=== PATIENT | male | born 1960 | race Caucasian/White ===

== ENCOUNTER 2020-05-30 20:10 | Inpatient (IN) ==
[2020-05-30] MEDS ORDERED: Thiamine (B-1) 100 MG TABLET PO ONE (20:22)
[2020-05-30] MEDS ORDERED: Renal Vitamin 1 CAP CAPSULE PO ONE (20:23)
[2020-05-30 20:51] LABS: Eosinophils % 1.3 %; Immature Granulocytes % 0.3 % (0-4)
[2020-05-30 20:52] LABS: VBG HCO3 25 mEq/L (21-27); VBG PCO2 47 mmHg (41-51); VBG PH 7.33 pH Units (7.32-7.42); VBG PO2 43 mmHg (25-50)
[2020-05-30 20:52] LABS: Basophils # 0.1 K/mcL (0.0-0.2); Basophils % 2.2 %; Hematocrit 34.8 % (37.5-50.1); Hemoglobin 10.6 g/dL (12.9-16.9); Immature Platelets 6.1 % (1.1-6.1); Lymphocytes # 1.1 K/mcL (0.6-4.6); Lymphocytes % 33.1 %; Mean Corpuscular HGB Conc 30.5 g/dL (31.6-35.5); Mean Corpuscular Hemoglobin 24.5 pg (28.0-33.3); Mean Corpuscular Volume 80.4 fL (83.0-100.0); Mean Platelet Volume 9.3 fL (9.4-12.4); Monocytes # 0.2 K/mcL (0.0-1.3); Monocytes % 6.9 %; Neutrophils # 1.8 K/mcL (1.6-8.9); Red Blood Count 4.33 M/mcL (4.19-5.50); Red Cell Distribution Width 17.8 % (11.5-14.5); Segmented Neutrophils % 56.2 %; White Blood Count 3.2 K/mcL (4.3-11.1)
[2020-05-30 20:55] LABS: INR 1.2; Prothrombin Time 14.2 Seconds (9.4-12.1)
[2020-05-30 21:17] LABS: Alanine Aminotransferase 18 Units/L (7-52); Albumin 3.9 g/dL (3.5-5.7); Alkaline Phosphatase 108 Units/L (34-104); Aspartate Amino Transferase 61 Units/L (13-39); BUN/Creatinine Ratio 11 (6-26); Bilirubin,Direct 0.7 mg/dL (0.0-0.2); Bilirubin,Total 1.7 mg/dL (0.3-1.0); Blood Urea Nitrogen 6 mg/dL (8-23); Calcium 9.2 mg/dL (8.6-10.3); Carbon Dioxide 23 mEq/L (23-29); Chloride 96 mEq/L (98-107); Ethanol 203 mg/dL (Less than 10); Globulin 3.9 g/dL (2.4-3.5); Glucose 102 mg/dL (70-105); Osmolality,Calculated 268 (280-300); Platelet Count 33 K/mcL (140-400); Potassium 3.9 mEq/L (3.5-5.1); Sodium 130 mEq/L (136-145); Total Protein 7.8 g/dL (6.4-8.9); eGFR For African Americans > 60 (> 60); eGFR For Non-African Americans > 60 (> 60)
[2020-05-30] MEDS ORDERED: Furosemide 40 MG/4 ML VIAL IVP ONE (21:28)
[2020-05-30] MEDS: Nitroglycerin 0.4 MG TAB.SUBL SL PRN ×3 (21:29→21:39)
[2020-05-30] MEDS ORDERED: cefTRIAXone 1,000 MG in Water for inj. (sterile) 10 ML IVP ONE (22:18)
[2020-05-30] MEDS ORDERED: *HR* Promethazine 25 MG/ML VIAL IM PRN (23:00)
[2020-05-30] MEDS ORDERED: Naloxone 0.4 MG/ML INJ IVP PRN (23:00)
[2020-05-30] MEDS ORDERED: Acetaminophen 325 MG TABLET PO PRN (23:00)
[2020-05-30] MEDS ORDERED: Ondansetron 4 MG/2 ML VIAL IVP PRN (23:00)
[2020-05-30] MEDS: DilTIAZem 50 MG/50 ML IV.SOLN IVC SCH (23:01)
[2020-05-30] MEDS ORDERED: *HR* LORazepam 2 MG/ML VIAL IVP PRN ×2 (23:02)
[2020-05-30 23:47] LABS: RBC,Peritoneal Fluid 8000 RBC/mcL
[2020-05-31 00:02] LABS: Amylase,Peritoneal Fluid < 10 Units/L (No Ref Range); Glucose,Peritoneal Fluid 109 mg/dL (No Ref Range); LDH,Peritoneal Fluid 66 Units/L (No Ref Range); Total Protein,Peritoneal Fluid < 2.0 g/dL
[2020-05-31 00:14] LABS: Influenza A PCR Negative (Negative); Influenza B PCR Negative (Negative); Resp. Syncytial Virus PCR Negative (Negative)
[2020-05-31 00:15] LABS: SARS-CoV-2 by PCR (In House) Negative (Negative)
[2020-05-31 00:34] LABS: Appearance of Peritoneal Fl CLEAR (Clear)
[2020-05-31 01:12] LABS: Basophils,Peritoneal Fluid 0 %; Eosinophils,Peritoneal Fluid 0 %
[2020-05-31] MEDS ORDERED: *HR* Heparin 5,000 UNIT/ML VIAL IVP PRN ×2 (01:51)
[2020-05-31] MEDS ORDERED: *HR* Heparin 5,000 UNIT/ML VIAL IVP ONE (01:51)
[2020-05-31] MEDS ORDERED: Heparin 25,000UNIT/250ML 1/2NS 25,000 UNIT/250 ML IV.SOLN IVC SCH (02:00)
[2020-05-31] MEDS: DilTIAZem 50 MG/50 ML IV.SOLN IVC SCH ×4 (03:01→19:55)
[2020-05-31] MEDS ORDERED: Perflutren Lipid Microsphere 1.3 ML in 0.9 % Sodium Chloride 8.7 ML IVP PRN (03:19)
[2020-05-31 04:43] LABS: Heparin anti-factor XA UFH < 0.04 IU/mL (0.30-0.70)
[2020-05-31 04:44] LABS: INR 1.3; Prothrombin Time 14.6 Seconds (9.4-12.1)
[2020-05-31 04:49] LABS: Alanine Aminotransferase 16 Units/L (7-52); Albumin 3.4 g/dL (3.5-5.7); Alkaline Phosphatase 91 Units/L (34-104); Aspartate Amino Transferase 57 Units/L (13-39); BUN/Creatinine Ratio 10 (6-26); Bilirubin,Total 1.6 mg/dL (0.3-1.0); Blood Urea Nitrogen 5 mg/dL (8-23); Calcium 8.8 mg/dL (8.6-10.3); Carbon Dioxide 25 mEq/L (23-29); Chloride 100 mEq/L (98-107); Chol/HDL Ratio 2.7 (0-4.9); Cholesterol 125 mg/dL (< 200); Globulin 3.5 g/dL (2.4-3.5); Glucose 84 mg/dL (70-105); HDL Cholesterol 46 mg/dL (40-59); LDL Cholesterol,Calculated 67 mg/dL (< 100); Magnesium 1.4 mg/dL (1.6-2.6); Osmolality,Calculated 282 (280-300); Phosphorous 4.1 mg/dL (2.7-4.5); Potassium 3.6 mEq/L (3.5-5.1); Sodium 138 mEq/L (136-145); Total Protein 6.9 g/dL (6.4-8.9); Triglycerides 61 mg/dL (< 150); eGFR For African Americans > 60 (> 60); eGFR For Non-African Americans > 60 (> 60)
[2020-05-31 04:55] LABS: Basophils % 1.4 %; Eosinophils % 0.5 %; Hematocrit 31.6 % (37.5-50.1); Hemoglobin 9.8 g/dL (12.9-16.9); Immature Granulocytes % 0.5 % (0-4); Lymphocytes # 0.5 K/mcL (0.6-4.6); Lymphocytes % 22.2 %; Mean Corpuscular Hemoglobin 25.2 pg (28.0-33.3); Mean Corpuscular Volume 81.2 fL (83.0-100.0); Monocytes # 0.2 K/mcL (0.0-1.3); Monocytes % 8.1 %; Neutrophils # 1.5 K/mcL (1.6-8.9); Red Blood Count 3.89 M/mcL (4.19-5.50); Red Cell Distribution Width 17.7 % (11.5-14.5); Segmented Neutrophils % 67.3 %; White Blood Count 2.2 K/mcL (4.3-11.1)
[2020-05-31 05:04] LABS: Platelet Count 26 K/mcL (140-400)
[2020-05-31] MEDS: Folic Acid 1 MG TABLET PO SCH (09:29)
[2020-05-31] MEDS: cefTRIAXone 1,000 MG in Water for inj. (sterile) 10 ML IVP SCH (09:29)
[2020-05-31] MEDS: Thiamine (B-1) 100 MG TABLET PO SCH (09:29)
[2020-05-31] MEDS: Vitamin B Complex/Vit C/Vit E 1 EACH TABLET PO SCH (09:29)
[2020-05-31] MEDS: Furosemide 40 MG/4 ML VIAL IVP SCH ×2 (09:29→19:58)
[2020-05-31 12:13] LABS: Eosinophils % 0.3 %; Hemoglobin 10.5 g/dL (12.9-16.9); Immature Granulocytes % 0.3 % (0-4); Mean Corpuscular Hemoglobin 24.5 pg (28.0-33.3)
[2020-05-31 12:15] LABS: Basophils % 1.2 %; Hematocrit 34.2 % (37.5-50.1); Lymphocytes # 0.6 K/mcL (0.6-4.6); Lymphocytes % 16.6 %; Mean Corpuscular HGB Conc 30.7 g/dL (31.6-35.5); Mean Corpuscular Volume 79.9 fL (83.0-100.0); Mean Platelet Volume 10.2 fL (9.4-12.4); Monocytes # 0.3 K/mcL (0.0-1.3); Monocytes % 7.6 %; Red Blood Count 4.28 M/mcL (4.19-5.50); White Blood Count 3.3 K/mcL (4.3-11.1)
[2020-05-31 12:21] LABS: Neutrophils # 2.4 K/mcL (1.6-8.9)
[2020-05-31 12:26] LABS: Platelet Count 26 K/mcL (140-400)
[2020-05-31] MEDS: Nystatin POWDER 30 GM BOTTLE TP SCH ×3 (12:28→19:58)
[2020-05-31 12:59] LABS: Anisocytosis 1+ (Not Present); Hypochromasia Present (Not Present); Platelet Estimate Marked Decrease (Normal)
[2020-05-31 13:24] LABS: % Iron Saturation 6 % (20-55); Iron 31 mcg/dL (65-175); Transferrin 370 mg/dL (203-362)
[2020-05-31 13:25] LABS: Troponin I < 0.03 ng/mL (< 0.04)
[2020-05-31 13:47] LABS: Folate > 22.3 ng/mL (3.0-16.0); Vitamin B12 666 pg/mL (250-1100)
[2020-05-31] MEDS: Nicotine 21 MG PATCH.TD24 TD PRN (21:20)
[2020-05-31 21:32] LABS: Activated Partial Thrombo Time 27.6 Seconds (26.0-36.0)
[2020-06-01 02:01] LABS: Hematocrit 31.6 % (37.5-50.1); Hemoglobin 9.6 g/dL (12.9-16.9); Immature Granulocytes % 0.4 % (0-4); Mean Corpuscular HGB Conc 30.4 g/dL (31.6-35.5); Red Cell Distribution Width 18.2 % (11.5-14.5)
[2020-06-01 02:03] LABS: Basophils % 1.4 %; Eosinophils % 0.7 %; Immature Platelets 6.9 % (1.1-6.1); Lymphocytes # 0.7 K/mcL (0.6-4.6); Lymphocytes % 26.1 %; Mean Corpuscular Hemoglobin 24.6 pg (28.0-33.3); Mean Corpuscular Volume 80.8 fL (83.0-100.0); Monocytes # 0.3 K/mcL (0.0-1.3); Neutrophils # 1.7 K/mcL (1.6-8.9); Red Blood Count 3.91 M/mcL (4.19-5.50); Segmented Neutrophils % 60.4 %; White Blood Count 2.8 K/mcL (4.3-11.1)
[2020-06-01 02:10] LABS: Platelet Count 24 K/mcL (140-400)
[2020-06-01 02:19] LABS: Alanine Aminotransferase 16 Units/L (7-52); Albumin 3.4 g/dL (3.5-5.7); Alkaline Phosphatase 84 Units/L (34-104); Aspartate Amino Transferase 55 Units/L (13-39); BUN/Creatinine Ratio 16 (6-26); Bilirubin,Total 1.7 mg/dL (0.3-1.0); Blood Urea Nitrogen 11 mg/dL (8-23); Calcium 8.7 mg/dL (8.6-10.3); Carbon Dioxide 30 mEq/L (23-29); Chloride 98 mEq/L (98-107); Globulin 3.4 g/dL (2.4-3.5); Glucose 120 mg/dL (70-105); Osmolality,Calculated 285 (280-300); Potassium 3.1 mEq/L (3.5-5.1); Sodium 137 mEq/L (136-145); Total Protein 6.8 g/dL (6.4-8.9); eGFR For African Americans > 60 (> 60); eGFR For Non-African Americans > 60 (> 60)
[2020-06-01] MEDS: DilTIAZem 50 MG/50 ML IV.SOLN IVC SCH ×2 (03:16→09:51)
[2020-06-01] MEDS: Thiamine (B-1) 100 MG TABLET PO SCH (08:00)
[2020-06-01] MEDS: Vitamin B Complex/Vit C/Vit E 1 EACH TABLET PO SCH (08:00)
[2020-06-01] MEDS: Folic Acid 1 MG TABLET PO SCH (08:01)
[2020-06-01] MEDS: cefTRIAXone 1,000 MG in Water for inj. (sterile) 10 ML IVP SCH (08:02)
[2020-06-01] MEDS: Furosemide 40 MG/4 ML VIAL IVP SCH (08:07)
[2020-06-01] MEDS: Nystatin POWDER 30 GM BOTTLE TP SCH ×3 (08:10→20:12)
[2020-06-01] MEDS ORDERED: POTASSIUM CHLORIDE IVPB ONE (10:43)
[2020-06-01] MEDS ORDERED: SODIUM CHLORIDE 0.9% IVPB ONE (10:43)
[2020-06-01] MEDS ORDERED: LIDOCAINE 1% IVPB ONE (10:43)
[2020-06-01] MEDS: Iron Sucrose Complex 250 MG in 0.9 % Sodium Chloride 250 ML IVPB SCH (15:09)
[2020-06-01] MEDS: Nicotine 21 MG PATCH.TD24 TD PRN (20:09)
[2020-06-02 03:12] LABS: Basophils # 0.1 K/mcL (0.0-0.2); Basophils % 1.6 %; Eosinophils # 0.1 K/mcL (0.0-0.6); Eosinophils % 2.3 %; Hematocrit 33.6 % (37.5-50.1); Hemoglobin 9.9 g/dL (12.9-16.9); Immature Granulocytes % 0.3 % (0-4); Immature Platelets 6.4 % (1.1-6.1); Lymphocytes # 0.6 K/mcL (0.6-4.6); Lymphocytes % 20.5 %; Mean Corpuscular HGB Conc 29.5 g/dL (31.6-35.5); Mean Corpuscular Hemoglobin 24.9 pg (28.0-33.3); Mean Corpuscular Volume 84.4 fL (83.0-100.0); Mean Platelet Volume 11.2 fL (9.4-12.4); Monocytes # 0.2 K/mcL (0.0-1.3); Monocytes % 7.5 %; Neutrophils # 2.1 K/mcL (1.6-8.9); Red Blood Count 3.98 M/mcL (4.19-5.50); Red Cell Distribution Width 18.3 % (11.5-14.5); Segmented Neutrophils % 67.8 %; White Blood Count 3.1 K/mcL (4.3-11.1)
[2020-06-02 03:15] LABS: Platelet Count 29 K/mcL (140-400)
[2020-06-02 03:31] LABS: Alanine Aminotransferase 17 Units/L (7-52); Albumin 3.5 g/dL (3.5-5.7); Alkaline Phosphatase 81 Units/L (34-104); Aspartate Amino Transferase 60 Units/L (13-39); BUN/Creatinine Ratio 19 (6-26); Bilirubin,Total 1.6 mg/dL (0.3-1.0); Blood Urea Nitrogen 13 mg/dL (8-23); Calcium 8.9 mg/dL (8.6-10.3); Carbon Dioxide 28 mEq/L (23-29); Chloride 101 mEq/L (98-107); Globulin 3.6 g/dL (2.4-3.5); Glucose 101 mg/dL (70-105); Osmolality,Calculated 286 (280-300); Potassium 3.2 mEq/L (3.5-5.1); Sodium 138 mEq/L (136-145); Total Protein 7.1 g/dL (6.4-8.9); eGFR For African Americans > 60 (> 60); eGFR For Non-African Americans > 60 (> 60)
[2020-06-02] MEDS ORDERED: Potassium Chloride 40 MEQ, Lidocaine 1% 2 ML in 0.9 % Sodium Chloride 500 ML IVPB ONE (07:38)
[2020-06-02] MEDS: Vitamin B Complex/Vit C/Vit E 1 EACH TABLET PO SCH (08:29)
[2020-06-02] MEDS: Folic Acid 1 MG TABLET PO SCH (08:29)
[2020-06-02] MEDS: Thiamine (B-1) 100 MG TABLET PO SCH (08:29)
[2020-06-02] MEDS: Furosemide 40 MG TABLET PO SCH (08:29)
[2020-06-02] MEDS: Iron Sucrose Complex 250 MG in 0.9 % Sodium Chloride 250 ML IVPB SCH (08:46)
[2020-06-02] MEDS: Nystatin POWDER 30 GM BOTTLE TP SCH ×3 (08:46→20:08)
[2020-06-02] MEDS ORDERED: Furosemide 20 MG/2 ML VIAL IVP ONE (09:28)
[2020-06-02] MEDS: DilTIAZem CD (24hr) 180 MG CAP.ER.24H PO SCH (11:47)
[2020-06-02] MEDS: Magnesium Oxide 400 MG TABLET PO SCH ×2 (11:47→20:08)
[2020-06-02] MEDS: *HR* LORazepam 2 MG/ML VIAL IVP PRN ×2 (11:58→13:42)
[2020-06-02] MEDS: Dexmedetomidine HCl 400 MCG/100 ML MLS IVC SCH ×5 (13:30→23:16)
[2020-06-02] MEDS ORDERED: Dexmedetomidine HCl 400 MCG/100 ML MLS IVC ONE (13:31)
[2020-06-02] MEDS ORDERED: *HR* LORazepam 2 MG/ML VIAL IVP ONE (14:35)
[2020-06-02] MEDS ORDERED: Haloperidol Lactate 5 MG/ML VIAL IVP ONE (14:44)
[2020-06-02 18:16] LABS: Immature Granulocytes % 0.7 % (0-4)
[2020-06-02 18:18] LABS: Hematocrit 31.3 % (37.5-50.1); Hemoglobin 9.2 g/dL (12.9-16.9); Immature Platelets 7.1 % (1.1-6.1); Lymphocytes # 0.5 K/mcL (0.6-4.6); Lymphocytes % 16.4 %; Mean Corpuscular HGB Conc 29.4 g/dL (31.6-35.5); Mean Corpuscular Hemoglobin 24.1 pg (28.0-33.3); Mean Corpuscular Volume 82.2 fL (83.0-100.0); Monocytes # 0.3 K/mcL (0.0-1.3); Monocytes % 9.4 %; Red Blood Count 3.81 M/mcL (4.19-5.50); Red Cell Distribution Width 18.3 % (11.5-14.5); Segmented Neutrophils % 71.5 %
[2020-06-02 18:23] LABS: Neutrophils # 2.2 K/mcL (1.6-8.9); Platelet Count 22 K/mcL (140-400)
[2020-06-02 18:37] LABS: BUN/Creatinine Ratio 22 (6-26); Blood Urea Nitrogen 14 mg/dL (8-23); Calcium 8.5 mg/dL (8.6-10.3); Carbon Dioxide 27 mEq/L (23-29); Chloride 103 mEq/L (98-107); Glucose 142 mg/dL (70-105); Osmolality,Calculated 289 (280-300); Potassium 3.5 mEq/L (3.5-5.1); Sodium 138 mEq/L (136-145); eGFR For African Americans > 60 (> 60); eGFR For Non-African Americans > 60 (> 60)
[2020-06-02 18:55] LABS: Anisocytosis 1+ (Not Present); Hypochromasia Present (Not Present); Platelet Estimate Marked Decrease (Normal)
[2020-06-02] MEDS: Metoprolol XL (24 HR) Succ 50 MG TAB.ER.24H PO SCH (20:08)
[2020-06-03] MEDS: Dexmedetomidine HCl 400 MCG/100 ML MLS IVC SCH ×8 (03:18→22:20)
[2020-06-03 06:32] LABS: Basophils % 1.8 %; Immature Granulocytes % 0.4 % (0-4)
[2020-06-03 06:34] LABS: Basophils # 0.1 K/mcL (0.0-0.2); Eosinophils # 0.1 K/mcL (0.0-0.6); Eosinophils % 3.6 %; Hematocrit 34.4 % (37.5-50.1); Hemoglobin 9.9 g/dL (12.9-16.9); Immature Platelets 8.5 % (1.1-6.1); Lymphocytes # 0.7 K/mcL (0.6-4.6); Lymphocytes % 23.9 %; Mean Corpuscular HGB Conc 28.8 g/dL (31.6-35.5); Mean Corpuscular Hemoglobin 24.3 pg (28.0-33.3); Mean Corpuscular Volume 84.5 fL (83.0-100.0); Mean Platelet Volume 10.1 fL (9.4-12.4); Monocytes # 0.3 K/mcL (0.0-1.3); Monocytes % 9.6 %; Neutrophils # 1.7 K/mcL (1.6-8.9); Red Blood Count 4.07 M/mcL (4.19-5.50); Red Cell Distribution Width 18.5 % (11.5-14.5); Segmented Neutrophils % 60.7 %; White Blood Count 2.8 K/mcL (4.3-11.1)
[2020-06-03 06:36] LABS: Platelet Count 23 K/mcL (140-400)
[2020-06-03 06:54] LABS: Alanine Aminotransferase 16 Units/L (7-52); Albumin 3.2 g/dL (3.5-5.7); Albumin/Globulin Ratio 0.9 (1.1-2.2); Alkaline Phosphatase 70 Units/L (34-104); Aspartate Amino Transferase 44 Units/L (13-39); BUN/Creatinine Ratio 23 (6-26); Bilirubin,Total 1.7 mg/dL (0.3-1.0); Blood Urea Nitrogen 14 mg/dL (8-23); Calcium 8.8 mg/dL (8.6-10.3); Carbon Dioxide 28 mEq/L (23-29); Chloride 103 mEq/L (98-107); Globulin 3.4 g/dL (2.4-3.5); Glucose 125 mg/dL (70-105); Osmolality,Calculated 288 (280-300); Potassium 3.4 mEq/L (3.5-5.1); Sodium 138 mEq/L (136-145); Total Protein 6.6 g/dL (6.4-8.9); eGFR For African Americans > 60 (> 60); eGFR For Non-African Americans > 60 (> 60)
[2020-06-03] MEDS: DilTIAZem CD (24hr) 180 MG CAP.ER.24H PO SCH (08:21)
[2020-06-03] MEDS: Vitamin B Complex/Vit C/Vit E 1 EACH TABLET PO SCH (08:22)
[2020-06-03] MEDS: Folic Acid 1 MG TABLET PO SCH (08:22)
[2020-06-03] MEDS: Furosemide 40 MG TABLET PO SCH (08:22)
[2020-06-03] MEDS: Magnesium Oxide 400 MG TABLET PO SCH ×2 (08:22→19:51)
[2020-06-03] MEDS: Metoprolol XL (24 HR) Succ 50 MG TAB.ER.24H PO SCH ×2 (08:23→19:51)
[2020-06-03] MEDS: Thiamine (B-1) 100 MG TABLET PO SCH (08:23)
[2020-06-03] MEDS: Iron Sucrose Complex 250 MG in 0.9 % Sodium Chloride 250 ML IVPB SCH (08:52)
[2020-06-03] MEDS: Thiamine (B-1) 200 MG in 0.9 % Sodium Chloride 50 ML IVPB SCH (08:52)
[2020-06-03] MEDS: Nystatin POWDER 30 GM BOTTLE TP SCH ×3 (08:54→19:56)
[2020-06-03] MEDS: Furosemide 40 MG/4 ML VIAL IVP SCH ×2 (14:41→19:56)
[2020-06-03] MEDS ORDERED: *HR* Metoprolol 5 MG/5 ML VIAL IVP PRN (15:21)
[2020-06-03] MEDS: *HR* LORazepam 2 MG/ML VIAL IVP PRN (21:10)
[2020-06-04] MEDS: *HR* LORazepam 2 MG/ML VIAL IVP PRN (02:02)
[2020-06-04] MEDS: Dexmedetomidine HCl 400 MCG/100 ML MLS IVC SCH ×7 (02:49→20:42)
[2020-06-04 04:09] LABS: VBG Ionized Calcium 1.13 mmol/L (1.15-1.35)
[2020-06-04 04:10] LABS: Basophils % 1.5 %; Eosinophils # 0.1 K/mcL (0.0-0.6); Hemoglobin 9.9 g/dL (12.9-16.9); Immature Granulocytes % 0.4 % (0-4); Immature Platelets 6.1 % (1.1-6.1); Lymphocytes # 0.4 K/mcL (0.6-4.6); Lymphocytes % 15.8 %; Mean Corpuscular Volume 83.3 fL (83.0-100.0); Monocytes # 0.2 K/mcL (0.0-1.3); Neutrophils # 1.9 K/mcL (1.6-8.9); Nucleated Red Blood Cells 0.7 /100 WBC (0); Red Blood Count 3.96 M/mcL (4.19-5.50); Red Cell Distribution Width 18.1 % (11.5-14.5); Segmented Neutrophils % 71.3 %; White Blood Count 2.7 K/mcL (4.3-11.1)
[2020-06-04 04:13] LABS: Platelet Count 28 K/mcL (140-400)
[2020-06-04 04:24] LABS: BUN/Creatinine Ratio 22 (6-26); Blood Urea Nitrogen 14 mg/dL (8-23); Calcium 8.6 mg/dL (8.6-10.3); Carbon Dioxide 30 mEq/L (23-29); Chloride 100 mEq/L (98-107); Glucose 154 mg/dL (70-105); Magnesium 1.6 mg/dL (1.6-2.6); Osmolality,Calculated 288 (280-300); Phosphorous 4.8 mg/dL (2.7-4.5); Potassium 3.3 mEq/L (3.5-5.1); Sodium 137 mEq/L (136-145); eGFR For African Americans > 60 (> 60); eGFR For Non-African Americans > 60 (> 60)
[2020-06-04] MEDS: Vitamin B Complex/Vit C/Vit E 1 EACH TABLET PO SCH (08:53)
[2020-06-04] MEDS: Magnesium Oxide 400 MG TABLET PO SCH ×2 (08:53→20:41)
[2020-06-04] MEDS: Furosemide 40 MG/4 ML VIAL IVP SCH (08:54)
[2020-06-04] MEDS: Folic Acid 1 MG TABLET PO SCH (08:54)
[2020-06-04] MEDS: Metoprolol XL (24 HR) Succ 50 MG TAB.ER.24H PO SCH ×2 (08:54→20:41)
[2020-06-04] MEDS: DilTIAZem CD (24hr) 180 MG CAP.ER.24H PO SCH (08:54)
[2020-06-04] MEDS: Nystatin POWDER 30 GM BOTTLE TP SCH ×3 (08:55→20:42)
[2020-06-04] MEDS: Thiamine (B-1) 100 MG TABLET PO SCH (08:56)
[2020-06-04] MEDS: Thiamine (B-1) 200 MG in 0.9 % Sodium Chloride 50 ML IVPB SCH (08:58)
[2020-06-04] MEDS ORDERED: Acetaminophen 325 MG TABLET PO PRN (17:47)
[2020-06-04] MEDS ORDERED: *HR* LORazepam 2 MG/ML VIAL IVP PRN ×3 (17:47)
[2020-06-04] MEDS ORDERED: Ondansetron 4 MG/2 ML VIAL IVP PRN (17:47)
[2020-06-04] MEDS ORDERED: Naloxone 0.4 MG/ML INJ IVP PRN (17:47)
[2020-06-04] MEDS ORDERED: *HR* Promethazine 25 MG/ML VIAL IM PRN (17:47)
[2020-06-05] MEDS: Dexmedetomidine HCl 400 MCG/100 ML MLS IVC SCH ×10 (03:07→19:46)
[2020-06-05 03:51] LABS: Hematocrit 31.9 % (37.5-50.1); Hemoglobin 9.5 g/dL (12.9-16.9); Immature Platelets 6.7 % (1.1-6.1); Mean Corpuscular HGB Conc 29.8 g/dL (31.6-35.5); Mean Corpuscular Hemoglobin 24.9 pg (28.0-33.3); Mean Corpuscular Volume 83.5 fL (83.0-100.0); Mean Platelet Volume 11.2 fL (9.4-12.4); Red Blood Count 3.82 M/mcL (4.19-5.50); White Blood Count 3.2 K/mcL (4.3-11.1)
[2020-06-05 04:07] LABS: Alanine Aminotransferase 19 Units/L (7-52); Albumin 3.1 g/dL (3.5-5.7); Alkaline Phosphatase 67 Units/L (34-104); Aspartate Amino Transferase 45 Units/L (13-39); BUN/Creatinine Ratio 22 (6-26); Bilirubin,Total 1.7 mg/dL (0.3-1.0); Blood Urea Nitrogen 16 mg/dL (8-23); Calcium 8.7 mg/dL (8.6-10.3); Carbon Dioxide 31 mEq/L (23-29); Chloride 103 mEq/L (98-107); Globulin 3.1 g/dL (2.4-3.5); Glucose 120 mg/dL (70-105); Osmolality,Calculated 292 (280-300); Potassium 3.1 mEq/L (3.5-5.1); Sodium 140 mEq/L (136-145); Total Protein 6.2 g/dL (6.4-8.9); eGFR For African Americans > 60 (> 60); eGFR For Non-African Americans > 60 (> 60)
[2020-06-05] MEDS: DilTIAZem CD (24hr) 180 MG CAP.ER.24H PO SCH (07:53)
[2020-06-05] MEDS: Folic Acid 1 MG TABLET PO SCH (07:53)
[2020-06-05] MEDS: Thiamine (B-1) 100 MG TABLET PO SCH (07:54)
[2020-06-05] MEDS: Metoprolol XL (24 HR) Succ 50 MG TAB.ER.24H PO SCH ×2 (07:54→19:45)
[2020-06-05] MEDS: Magnesium Oxide 400 MG TABLET PO SCH ×2 (07:54→19:45)
[2020-06-05] MEDS: Furosemide 40 MG TABLET PO SCH (07:54)
[2020-06-05] MEDS: Nystatin POWDER 30 GM BOTTLE TP SCH ×3 (07:55→19:46)
[2020-06-05] MEDS ORDERED: Furosemide 40 MG TABLET PO SCH (09:00)
[2020-06-06] MEDS: Dexmedetomidine HCl 400 MCG/100 ML MLS IVC SCH ×9 (02:18→22:38)
[2020-06-06 03:57] LABS: Hematocrit 33.2 % (37.5-50.1)
[2020-06-06 03:59] LABS: Hemoglobin 9.8 g/dL (12.9-16.9); Mean Corpuscular HGB Conc 29.5 g/dL (31.6-35.5); Mean Corpuscular Hemoglobin 24.7 pg (28.0-33.3); Mean Corpuscular Volume 83.8 fL (83.0-100.0); Mean Platelet Volume 10.1 fL (9.4-12.4); Red Blood Count 3.96 M/mcL (4.19-5.50); Red Cell Distribution Width 19.4 % (11.5-14.5); White Blood Count 3.6 K/mcL (4.3-11.1)
[2020-06-06 04:01] LABS: BUN/Creatinine Ratio 22 (6-26); Blood Urea Nitrogen 14 mg/dL (8-23); Calcium 8.5 mg/dL (8.6-10.3); Carbon Dioxide 30 mEq/L (23-29); Chloride 104 mEq/L (98-107); Glucose 103 mg/dL (70-105); Magnesium 1.7 mg/dL (1.6-2.6); Osmolality,Calculated 289 (280-300); Potassium 3.4 mEq/L (3.5-5.1); Sodium 139 mEq/L (136-145); eGFR For African Americans > 60 (> 60); eGFR For Non-African Americans > 60 (> 60)
[2020-06-06] MEDS: Thiamine (B-1) 100 MG TABLET PO SCH (08:23)
[2020-06-06] MEDS: Magnesium Oxide 400 MG TABLET PO SCH ×2 (08:23→20:21)
[2020-06-06] MEDS: DilTIAZem CD (24hr) 180 MG CAP.ER.24H PO SCH (08:23)
[2020-06-06] MEDS: Furosemide 40 MG TABLET PO SCH ×2 (08:24→22:25)
[2020-06-06] MEDS: Metoprolol XL (24 HR) Succ 50 MG TAB.ER.24H PO SCH ×2 (08:24→20:21)
[2020-06-06] MEDS: Folic Acid 1 MG TABLET PO SCH (08:24)
[2020-06-06] MEDS: Nystatin POWDER 30 GM BOTTLE TP SCH ×3 (08:25→22:25)
[2020-06-06] MEDS ORDERED: Calcium Gluconate 1gm/50mL 1 GM/50 ML BAG IVPB SCH (09:00)
[2020-06-06] MEDS: Nicotine 21 MG PATCH.TD24 TD PRN (12:57)
[2020-06-06] MEDS: Albumin 25% 25gram/100mL 25 GM/100 ML IV.SOLN IVPB SCH (20:20)
[2020-06-07 05:30] LABS: Eosinophils % 3.2 %; Immature Granulocytes % 0.5 % (0-4)
[2020-06-07 05:31] LABS: Basophils % 1.8 %; Eosinophils # 0.1 K/mcL (0.0-0.6); Hematocrit 33.7 % (37.5-50.1); Hemoglobin 9.7 g/dL (12.9-16.9); Immature Platelets 6.4 % (1.1-6.1); Lymphocytes # 0.5 K/mcL (0.6-4.6); Lymphocytes % 24.3 %; Mean Corpuscular HGB Conc 28.8 g/dL (31.6-35.5); Mean Corpuscular Hemoglobin 24.4 pg (28.0-33.3); Mean Corpuscular Volume 84.7 fL (83.0-100.0); Mean Platelet Volume 9.4 fL (9.4-12.4); Monocytes # 0.3 K/mcL (0.0-1.3); Monocytes % 12.4 %; Neutrophils # 1.3 K/mcL (1.6-8.9); Red Blood Count 3.98 M/mcL (4.19-5.50); Red Cell Distribution Width 19.6 % (11.5-14.5); Segmented Neutrophils % 57.8 %; White Blood Count 2.2 K/mcL (4.3-11.1)
[2020-06-07 05:36] LABS: Platelet Count 43 K/mcL (140-400)
[2020-06-07 05:48] LABS: Alanine Aminotransferase 23 Units/L (7-52); Albumin 3.5 g/dL (3.5-5.7); Albumin/Globulin Ratio 1.1 (1.1-2.2); Alkaline Phosphatase 71 Units/L (34-104); Aspartate Amino Transferase 45 Units/L (13-39); BUN/Creatinine Ratio 18 (6-26); Bilirubin,Total 1.6 mg/dL (0.3-1.0); Blood Urea Nitrogen 12 mg/dL (8-23); Calcium 8.7 mg/dL (8.6-10.3); Carbon Dioxide 26 mEq/L (23-29); Chloride 105 mEq/L (98-107); Globulin 3.3 g/dL (2.4-3.5); Glucose 99 mg/dL (70-105); Magnesium 1.7 mg/dL (1.6-2.6); Osmolality,Calculated 286 (280-300); Phosphorous 2.9 mg/dL (2.7-4.5); Potassium 3.5 mEq/L (3.5-5.1); Sodium 138 mEq/L (136-145); Total Protein 6.8 g/dL (6.4-8.9); eGFR For African Americans > 60 (> 60); eGFR For Non-African Americans > 60 (> 60)
[2020-06-07] MEDS: DilTIAZem CD (24hr) 180 MG CAP.ER.24H PO SCH (08:28)
[2020-06-07] MEDS: Folic Acid 1 MG TABLET PO SCH (08:28)
[2020-06-07] MEDS: Metoprolol XL (24 HR) Succ 50 MG TAB.ER.24H PO SCH ×2 (08:28→21:36)
[2020-06-07] MEDS: Magnesium Oxide 400 MG TABLET PO SCH ×2 (08:29→21:35)
[2020-06-07] MEDS: Thiamine (B-1) 100 MG TABLET PO SCH (08:29)
[2020-06-07] MEDS: Albumin 25% 25gram/100mL 25 GM/100 ML IV.SOLN IVPB SCH ×2 (08:30→21:32)
[2020-06-07] MEDS: Nystatin POWDER 30 GM BOTTLE TP SCH ×3 (08:31→21:36)
[2020-06-07] MEDS: Furosemide 40 MG TABLET PO SCH ×2 (10:39→17:14)
[2020-06-07] MEDS: Lactulose Oral Soln 20 GM/30 ML UDC PO SCH (21:34)
[2020-06-08] MEDS: Nicotine 21 MG PATCH.TD24 TD PRN (05:15)
[2020-06-08 06:45] LABS: Basophils % 1.7 %; Eosinophils # 0.1 K/mcL (0.0-0.6); Eosinophils % 2.2 %; Hematocrit 31.8 % (37.5-50.1); Hemoglobin 9.5 g/dL (12.9-16.9); Immature Platelets 6.6 % (1.1-6.1); Lymphocytes # 0.6 K/mcL (0.6-4.6); Lymphocytes % 27.2 %; Mean Corpuscular HGB Conc 29.9 g/dL (31.6-35.5); Mean Corpuscular Hemoglobin 25.3 pg (28.0-33.3); Mean Corpuscular Volume 84.6 fL (83.0-100.0); Mean Platelet Volume 10.6 fL (9.4-12.4); Monocytes # 0.3 K/mcL (0.0-1.3); Monocytes % 12.9 %; Neutrophils # 1.3 K/mcL (1.6-8.9); Red Blood Count 3.76 M/mcL (4.19-5.50); Red Cell Distribution Width 19.8 % (11.5-14.5); White Blood Count 2.3 K/mcL (4.3-11.1)
[2020-06-08 06:48] LABS: Platelet Count 51 K/mcL (140-400)
[2020-06-08 07:01] LABS: Alanine Aminotransferase 24 Units/L (7-52); Albumin 3.8 g/dL (3.5-5.7); Albumin/Globulin Ratio 1.2 (1.1-2.2); Alkaline Phosphatase 73 Units/L (34-104); Aspartate Amino Transferase 46 Units/L (13-39); BUN/Creatinine Ratio 17 (6-26); Bilirubin,Total 1.6 mg/dL (0.3-1.0); Blood Urea Nitrogen 12 mg/dL (8-23); Calcium 8.9 mg/dL (8.6-10.3); Carbon Dioxide 27 mEq/L (23-29); Chloride 104 mEq/L (98-107); Globulin 3.2 g/dL (2.4-3.5); Glucose 99 mg/dL (70-105); Magnesium 1.7 mg/dL (1.6-2.6); Osmolality,Calculated 286 (280-300); Phosphorous 2.7 mg/dL (2.7-4.5); Potassium 3.6 mEq/L (3.5-5.1); Sodium 138 mEq/L (136-145); eGFR For African Americans > 60 (> 60); eGFR For Non-African Americans > 60 (> 60)
[2020-06-08] MEDS: Thiamine (B-1) 100 MG TABLET PO SCH (08:13)
[2020-06-08] MEDS: Magnesium Oxide 400 MG TABLET PO SCH (08:13)
[2020-06-08] MEDS: DilTIAZem CD (24hr) 180 MG CAP.ER.24H PO SCH (08:14)
[2020-06-08] MEDS: Lactulose Oral Soln 20 GM/30 ML UDC PO SCH (08:14)
[2020-06-08] MEDS: Folic Acid 1 MG TABLET PO SCH (08:14)
[2020-06-08] MEDS: Furosemide 40 MG TABLET PO SCH (08:14)
[2020-06-08] MEDS: Metoprolol XL (24 HR) Succ 50 MG TAB.ER.24H PO SCH (08:14)
[2020-06-08] MEDS: Albumin 25% 25gram/100mL 25 GM/100 ML IV.SOLN IVPB SCH (08:14)
[2020-06-08] MEDS: Nystatin POWDER 30 GM BOTTLE TP SCH (08:15)
[2020-06-08 11:51] VITALS: BP 155/84
== END 2020-06-08 13:57 | disposition home health service (06) | DRG 280 ==
LOC: EMEROOARM 20:10 → 2NNU 20:10 → SUATTDRO 05-31 00:26 → 2NNU 05-31 01:41 → SUATTDRO 05-31 14:50 → ICNU 06-02 15:24 → 2ANU 06-06 15:52
PROVIDERS: ADMIT Student in an Organized Health Care Education/Training Program; ATTEND Internal Medicine